=== PATIENT | male | born 1975 | race Caucasian/White ===

== ENCOUNTER 2017-06-28 15:08 | Emergency (ER) | payer SELFPAY ==
[~2017-06-28] VITALS: Ht 182.9 cm; Wt 85.0 kg
[2017-06-28 15:11] VITALS: BP 116/70; PULSE 87; RESP 14; TEMP 98.4; O2SAT 98
--- NOTE | 2017-06-28 16:50 | PD ---
HPI Chief Complaint: Musculoskeletal Complaint Time Seen by Provider: 16:21 Travel History International Travel<30 days: No Contact w/Intl Traveler<30days: No Traveled to known affect area: No History of Present Illness HPI This patient complains of back pain. It's upper left back pain and moving his left shoulder reproduces it. There is been no injury. He has no fever. He has known HIV and does not see any doctor or take any medication for 2 years. He also is an IV drug user. Severity is moderate. No alleviating factors. Pain exacerbating with movement of left shoulder. PFSH Past Medical History Medical other: Yes (HIV +) Pneumonia: Yes Past Surgical History Appendectomy: Yes Other Surgery: Yes (SROTAL MRSA ABCESS) Social History Alcohol Use: Yes (occ) Tobacco Use: No Substance Use: Yes (CRYSTAL METH) Allergies-Medications (Allergen,Severity, Reaction): Coded Allergies: efavirenz (Verified Allergy, Intermediate, RASH, 06/28/17) Review of Systems General / Constitutional: No: Fever Eyes: No: Visual changes HENT: No: Headaches Cardiovascular: No: Chest Pain or Discomfort Respiratory: No: Shortness of Breath Gastrointestinal: No: Abdominal Pain Genitourinary: No: Dysuria Musculoskeletal: Positive: Pain Skin: No Rash Neurologic: No: Weakness Psychiatric: Positive: Substance Abuse, No: Depression Endocrine: No: Polydipsia Hematologic/Lymphatic: No: Easy Bruising Physical Exam Narrative GENERAL: Well-nourished, well-developed patient in no apparent distress. SKIN: Focused skin assessment reveals no rash and nodules. Skin is Warm and dry. HEAD: Atraumatic. Normocephalic. EYES: Pupils equal and round. No scleral icterus. No injection or drainage. ENT: No nasal bleeding or discharge. Mucous membranes pink and moist. NECK: Trachea midline. No JVD. CARDIOVASCULAR: Regular rate and rhythm. No murmur appreciated. RESPIRATORY: No accessory muscle use. Clear to auscultation. Breath sounds equal bilaterally. GASTROINTESTINAL: Abdomen soft, non-tender, nondistended. Hepatic and splenic margins not palpable. MUSCULOSKELETAL: No obvious deformities. No clubbing. No cyanosis. No edema. Has tenderness left rhomboid muscle but no erythema or bruising inflammation. There is no midline tenderness of the spine. NEUROLOGICAL: Awake and alert. No obvious cranial nerve deficits. Motor grossly within normal limits. Normal speech. PSYCHIATRIC: Appropriate mood and affect; insight and judgment normal. Data Data Last Documented VS Vital Signs Date Time Temp Pulse Resp B/P (MAP) Pulse Ox O2 Delivery O2 Flow Rate FiO2 06/28/17 15:11 98.4 87 14 116/70 (85) 98 Orders Orders Chest, Single Ap (06/28/17 ) Iv Access Insert/Monitor (06/28/17 16:44) Complete Blood Count With Diff (06/28/17 16:44) Basic Metabolic Panel (Bmp) (06/28/17 16:44) Westergren Sedimentation Rate (06/28/17 16:44) MDM Medical Decision Making Medical Screen Exam Complete: Yes Emergency Medical Condition: Yes Medical Record Reviewed: Yes Differential Diagnosis Rhomboid muscle strain, pneumonia, arthritis Narrative Course I have reviewed the patient's electronic medical record. I've ordered a workup given his known immunocompromise and IV drug use but my initial suspicion is musculoskeletal pain Mustapha Thomas MD Jun 28, 2017 16:50
--- NOTE | 2017-06-28 17:40 | RADRPT ---
EXAM DATE/TIME: 06/28/2017 17:09 [facility] COMPARISON: No previous studies available for comparison. INDICATIONS : Pain in back and bilateral axillary regions. MEDICAL HISTORY : HIV Pneumonia. SURGICAL HISTORY : None. ENCOUNTER: Initial ACUITY: 1 week PAIN SCORE: 5/10 LOCATION: Back/Axillary region. FINDINGS: A single view of the chest demonstrates the lungs to be symmetrically aerated without evidence of mas s, infiltrate or effusion. The cardiomediastinal contours are unremarkable. Osseous structures are intact. CONCLUSION: No acute disease. Denver Montague MD on June 28, 2017 at 17:38 Board Certified Radiologist. This report was verified electronically.
[2017-06-28 17:43] LABS: AUTOMATED NEUTROPHIL # 1.5 TH/MM3 (1.8-7.7); BASOPHIL % 0.8 % (0.0-2.0); EOSINOPHIL # 0.2 TH/MM3 (0-0.4); EOSINOPHIL % 4.5 % (0.0-4.0); HEMATOCRIT 39.5 % (39.0-51.0); LYMPH % 48.7 % (9.0-44.0); LYMPHOCYTE # 1.9 TH/MM3 (1.0-4.8); MEAN CELL VOLUME 86.8 FL (80.0-100.0); MEAN CORPUSCULAR HEMOGLOBIN 28.9 PG (27.0-34.0); MEAN CORPUSCULAR HGB CONC 33.3 % (32.0-36.0); MONO % 8.5 % (0.0-8.0); NEUT % 37.5 % (16.0-70.0); PLATELET COUNT 219 TH/MM3 (150-450); RED BLOOD COUNT 4.55 MIL/MM3 (4.50-5.90); RED CELL DISTRIBUTION WIDTH 13.1 % (11.6-17.2); WHITE BLOOD COUNT 3.9 TH/MM3 (4.0-11.0)
[2017-06-28 17:45] LABS: HEMO FLAGS AUTO DIFF
[2017-06-28 18:03] LABS: BICARBONATE 28.5 MEQ/L (21.0-32.0); POTASSIUM 4.1 MEQ/L (3.5-5.1)
[2017-06-28 18:10] LABS: PLATELET ESTIMATE SMEAR NORMAL (NORMAL); PLATELET MORPHOLOGY NORMAL (NORMAL); SCAN/DIFF AUTO DIFF CONFIRMED
[2017-06-28] MEDS ORDERED: ULTR50TA5 PO (18:19)
[2017-06-28] MEDS ORDERED: CYCL1TAB29 PO (18:19)
--- NOTE | 2017-06-28 18:20 | PD ---
Physical Exam Date Seen by Provider: Jun 28, 2017 Narrative Care was assumed from Dr. Thomas at 5 PM. This patient presents with pain in his left upper back for a week or 2. Pain is exacerbated by certain movements. Pain has been unrelieved by nonsteroidal anti-inflammatory agents. He has had no associated fevers or chills. He is HIV positive. He is not currently on treatment for HIV. On exam, he has tenderness in the left upper back between the shoulder blade and the spine. Data Data Last Documented VS Vital Signs Date Time Temp Pulse Resp B/P (MAP) Pulse Ox O2 Delivery O2 Flow Rate FiO2 06/28/17 15:11 98.4 87 14 116/70 (85) 98 Orders Orders Chest, Single Ap (06/28/17 ) Iv Access Insert/Monitor (06/28/17 16:44) Complete Blood Count With Diff (06/28/17 16:44) Basic Metabolic Panel (Bmp) (06/28/17 16:44) Westergren Sedimentation Rate (06/28/17 16:44) Labs Laboratory Tests Test 06/28/17 17:10 White Blood Count 3.9 TH/MM3 Red Blood Count 4.55 MIL/MM3 Hemoglobin 13.1 GM/DL Hematocrit 39.5 % Mean Corpuscular Volume 86.8 FL Mean Corpuscular Hemoglobin 28.9 PG Mean Corpuscular Hemoglobin Concent 33.3 % Red Cell Distribution Width 13.1 % Platelet Count 219 TH/MM3 Mean Platelet Volume 7.9 FL Neutrophils (%) (Auto) 37.5 % Lymphocytes (%) (Auto) 48.7 % Monocytes (%) (Auto) 8.5 % Eosinophils (%) (Auto) 4.5 % Basophils (%) (Auto) 0.8 % Neutrophils # (Auto) 1.5 TH/MM3 Lymphocytes # (Auto) 1.9 TH/MM3 Monocytes # (Auto) 0.3 TH/MM3 Eosinophils # (Auto) 0.2 TH/MM3 Basophils # (Auto) 0.0 TH/MM3 CBC Comment AUTO DIFF Differential Comment AUTO DIFF CONFIRMED Platelet Estimate NORMAL Platelet Morphology Comment NORMAL Red Cell Morphology Comment NORMAL Erythrocyte Sedimentation Rate 10 mm/hr Blood Urea Nitrogen 12 MG/DL Creatinine 1.01 MG/DL Random Glucose 73 MG/DL Calcium Level 8.3 MG/DL Sodium Level 139 MEQ/L Potassium Level 4.1 MEQ/L Chloride Level 106 MEQ/L Carbon Dioxide Level 28.5 MEQ/L Anion Gap 5 MEQ/L Estimat Glomerular Filtration Rate 81 ML/MIN MDM Supervised Visit with PROSPER: No Narrative Course CBC & BMP Diagram 06/28/17 17:10 Calcium Level 8.3 L Sedimentation rate is normal at 10. Last Impressions Chest X-Ray 06/28/17 0000 Signed Impressions: Service Date/Time: Wednesday, June 28, 2017 17:09 - CONCLUSION: No acute disease. Denver Montague MD I will discharge the patient with prescriptions for Ultram and Flexeril. Diagnosis Primary Impression: Upper back pain on left side Med/Other Pt SpecificInfo: Prescription(s) given Scripts Cyclobenzaprine (Flexeril) 10 Mg Tab 10 MG PO TID for Muscle Spasm, #30 TAB 0 Refills Prov: Es Cabrera MD 06/28/17 Tramadol (Ultram) 50 Mg Tab 50 MG PO Q4H Y for PAIN, #12 TAB 0 Refills Prov: Es Cabrera MD 06/28/17 Disposition: DISCHARGE HOME Condition: Stable Es Cabrera MD Jun 28, 2017 18:20
== END 2017-06-28 18:42 | disposition home or self-care (01) ==
LOC: NEPD 15:08
DX: M54.9 Dorsalgia, unspecified (principal); F15.90 Other stimulant use, unspecified, uncomplicated; Z21 Asymptomatic human immunodeficiency virus [HIV] infection status
CPT/HCPCS: 71010; 80048; 85025; 85652; 99284

== ENCOUNTER 2018-01-18 18:10 | Emergency (ER) | payer SELFPAY ==
[~2018-01-18] VITALS: Ht 182.9 cm; Wt 79.5 kg
[~2018-01-18 18:10] MED LIST: CYCL10TA PO; TRAM50 PO
[2018-01-18] MEDS ORDERED: IOHEXOL 350 MG/ML 10 ML VIAL (for RAD DIAG) IVCONTRAST ONE (18:11)
[2018-01-18 18:18] VITALS: BP 147/57; PULSE 89; RESP 18; TEMP 97.7; O2SAT 98
--- NOTE | 2018-01-18 18:38 | RADRPT ---
EXAM DATE/TIME: 01/18/2018 18:29 [facility] COMPARISON: No previous studies available for comparison. INDICATIONS : Left lateral rib pain, fell MEDICAL HISTORY : None. HIV Pneumonia. SURGICAL HISTORY : None. ENCOUNTER: Initial ACUITY: 4 - 6 days PAIN SCORE: 6/10 LOCATION: Left chest FINDINGS: PA and lateral views of the chest demonstrate the lungs to be symmetrically aerated without evidence of mass, infiltrate or effusion. The cardiomediastinal contours are unremarkable. Osseous structure s are intact. CONCLUSION: No acute disease. Denver Pino MD on January 18, 2018 at 18:34 Board Certified Radiologist. This report was verified electronically.
[2018-01-18] MEDS ORDERED: DARU1TAB2 PO (19:24)
[2018-01-18] MEDS ORDERED: EMTR1TAB4 PO (19:24)
[2018-01-18] MEDS ORDERED: SODIUM CHLOR 0.9% 1000 ML INJ 1,000 ML IV SCH (19:54)
--- NOTE | 2018-01-18 19:54 | PD ---
HPI Chief Complaint: Musculoskeletal Complaint Time Seen by Provider: 19:35 Travel History International Travel<30 days: No Contact w/Intl Traveler<30days: No Traveled to known affect area: No History of Present Illness HPI 42-year-old male with a history of HIV on antiviral therapy and a chronic illicit drug use or presents emergency department for evaluation of left rib cage and left shoulder pain that started Friday. Patient states that he was inhaling butyl nitrates when he lost consciousness for several seconds and fell landing on his left lower rib cage. Says that he felt a "pop" to his left rib area. Patient does not believe he hit his head but is unsure. Patient says he had a similar episode 1 month ago where he passed out but does not recall injuring himself then. Patient states that he has performing yard work all week and does not believe he has had good fluid intake for proper nutrition resulting in increased muscular pain. Says he has had nausea since Friday as well. Patient says his urine has been dark as a result not drink enough fluid. He denies any dizziness, blurred vision, neck pain, back pain. Patient points to the left upper trapezius and subscapular region where his pain is. Patient says he follows [facility] for his antivirals. Says that he had been off these medications for years and recently started on December 25. [facility] Past Medical History Autoimmune Disease: Yes (HIV) Pneumonia: Yes Past Surgical History Appendectomy: Yes Other Surgery: Yes (SCROTAL MRSA ABCESS) Social History Alcohol Use: Yes (occ) Tobacco Use: No Substance Use: Yes (CRYSTAL METH) Allergies-Medications (Allergen,Severity, Reaction): Coded Allergies: efavirenz (Verified Allergy, Intermediate, RASH, 01/18/18) Reported Meds & Prescriptions Reported Meds & Active Scripts Active Robaxin (Methocarbamol) 500 Mg Tab 500 Mg PO TID 3 Days Reported Descovy (Emtricitabine-Tenofovir Alafenamide) 200-25 mg Tab 1 Tab PO DAILY Prezcobix (Darunavir-Cobicistat) 800-150 Mg Tab 1 Tab PO DAILY Review of Systems Except as stated in HPI: all other systems reviewed are Neg Physical Exam Narrative GENERAL: WD, WN SKIN: Warm and dry. HEAD: Atraumatic. Normocephalic. EYES: Pupils equal and round. No scleral icterus. No injection or drainage. ENT: No nasal bleeding or discharge. Mucous membranes pink and moist. NECK: Trachea midline. No JVD. CARDIOVASCULAR: Regular rate and rhythm. RESPIRATORY: No accessory muscle use. Clear to auscultation. Breath sounds equal bilaterally. GASTROINTESTINAL: Abdomen soft, non-tender, nondistended. Hepatic and splenic margins not palpable. MUSCULOSKELETAL: Extremities without clubbing, cyanosis, or edema. No obvious deformities. NEUROLOGICAL: Awake and alert. No obvious cranial nerve deficits. Motor grossly within normal limits. Five out of 5 muscle strength in the arms and legs. Normal speech. PSYCHIATRIC: Appropriate mood and affect; insight and judgment normal. Data Data Last Documented VS Vital Signs Date Time Temp Pulse Resp B/P (MAP) Pulse Ox O2 Delivery O2 Flow Rate FiO2 01/18/18 22:45 01/18/18 20:38 96 16 96 Room Air 01/18/18 18:18 97.7 Orders Orders Electrocardiogram (01/18/18 ) Chest, Pa & Lat (01/18/18 ) Complete Blood Count With Diff (01/18/18 19:54) Comprehensive Metabolic Panel (01/18/18 19:54) Lipase (01/18/18 19:54) Prothrombin Time / Inr (Pt) (01/18/18 19:54) Act Partial Throm Time (Ptt) (01/18/18 19:54) Urinalysis - C+S If Indicated (01/18/18 19:54) Ct Abd/Pel W Iv Contrast(Rout) (01/18/18 19:54) Iv Access Insert/Monitor (01/18/18 19:54) Ecg Monitoring (01/18/18 19:54) Oximetry (01/18/18 19:54) Sodium Chlor 0.9% 1000 Ml Inj (Ns 1000 M (01/18/18 19:54) Sodium Chloride 0.9% Flush (Ns Flush) (01/18/18 20:00) Ckmb (Isoenzyme) Profile (01/18/18 19:54) CKMB (01/18/18 20:06) CKMB% (01/18/18 20:06) Iohexol 350 Inj (Omnipaque 350 Inj) (01/18/18 18:11) Sodium Chlor 0.9% 1000 Ml Inj (Ns 1000 M (01/18/18 22:00) Ed Discharge Order (01/18/18 22:42) Labs Laboratory Tests Test 01/18/18 20:06 01/18/18 20:19 White Blood Count 5.2 TH/MM3 Red Blood Count 3.82 MIL/MM3 Hemoglobin 11.4 GM/DL Hematocrit 33.3 % Mean Corpuscular Volume 87.1 FL Mean Corpuscular Hemoglobin 29.8 PG Mean Corpuscular Hemoglobin Concent 34.3 % Red Cell Distribution Width 14.8 % Platelet Count 256 TH/MM3 Mean Platelet Volume 7.2 FL Neutrophils (%) (Auto) 57.3 % Lymphocytes (%) (Auto) 31.6 % Monocytes (%) (Auto) 8.4 % Eosinophils (%) (Auto) 2.2 % Basophils (%) (Auto) 0.5 % Neutrophils # (Auto) 3.0 TH/MM3 Lymphocytes # (Auto) 1.6 TH/MM3 Monocytes # (Auto) 0.4 TH/MM3 Eosinophils # (Auto) 0.1 TH/MM3 Basophils # (Auto) 0.0 TH/MM3 CBC Comment DIFF FINAL Differential Comment Prothrombin Time 10.0 SEC Prothromb Time International Ratio 1.0 RATIO Activated Partial Thromboplast Time 26.8 SEC Blood Urea Nitrogen 12 MG/DL Creatinine 1.09 MG/DL Random Glucose 105 MG/DL Total Protein 6.6 GM/DL Albumin 3.2 GM/DL Calcium Level 8.1 MG/DL Alkaline Phosphatase 90 U/L Aspartate Amino Transf (AST/SGOT) 38 U/L Alanine Aminotransferase (ALT/SGPT) 34 U/L Total Bilirubin 0.2 MG/DL Sodium Level 137 MEQ/L Potassium Level 4.2 MEQ/L Chloride Level 107 MEQ/L Carbon Dioxide Level 22.9 MEQ/L Anion Gap 7 MEQ/L Estimat Glomerular Filtration Rate 74 ML/MIN Total Creatine Kinase 383 U/L Creatine Kinase MB 5.7 NG/ML Creatine Kinase MB % 1.5 % Lipase 127 U/L Urine Color LIGHT-YELLOW Urine Turbidity CLEAR Urine pH 7.0 Urine Specific [place] 1.010 Urine Protein NEG mg/dL Urine Glucose (UA) NEG mg/dL Urine Ketones NEG mg/dL Urine Occult Blood NEG Urine Nitrite NEG Urine Bilirubin NEG Urine Urobilinogen LESS THAN 2.0 MG/DL Urine Leukocyte Esterase NEG Urine RBC LESS THAN 1 /hpf Urine WBC 1 /hpf Microscopic Urinalysis Comment CULT NOT INDICATED MDM Medical Decision Making Medical Screen Exam Complete: Yes Emergency Medical Condition: Yes Differential Diagnosis Costochondritis, splenic rupture, chest wall contusion Narrative Course 42-year-old male presents emergency room for evaluation of left lower rib cage, axillary pain that started after a fall that occurred on Friday. Labs and imaging studies ordered. EKG shows sinus rhythm at a rate of 81. No STEMI changes. CBC & BMP Diagram 01/18/18 20:06 Total Protein 6.6, Albumin 3.2 L, Calcium Level 8.1 L, Alkaline Phosphatase 90, Aspartate Amino Transf (AST/SGOT) 38 H, Alanine Aminotransferase (ALT/SGPT) 34, Total Bilirubin 0.2 Total CK elevated at 383. Last Impressions Abdomen/Pelvis CT 01/18/181953 Signed Impressions: Service Date/Time: Thursday, January 18, 2018 21:39 - CONCLUSION: 1. No acute CT findings in the abdomen or pelvis. 2. Simple fluid density cystic lesion measuring 3.3 x 1.7 cm adjacent the right anterior pericardium consistent with pericardial cyst. 3. Subcentimeter hypodense cystic lesion in segment 2 of the liver which is too small to fully characterize. Statistically, this reflects a hemangioma or cyst. 4. Status post appendectomy. Pollo Sheikh MD Chest X-Ray 01/18/18 0000 Signed Impressions: Service Date/Time: Thursday, January 18, 2018 18:29 - CONCLUSION: No acute disease. Denver Pino MD 2 L normal saline IV fluid administered. Patient be discharged advised to use Tylenol or Motrin per package instructions for his pain. Robaxin for muscle spasms. Advised to continue deep breaths to avoid palpitations as a result of the rib pain. Patient should follow-up with his primary care physician. Diagnosis Primary Impression: Muscle spasm Additional Impression: Costochondritis Referrals: Primary Care Physician Additional Instructions: Continue to take deep breaths to avoid complications as a result of the rib pain. May use Tylenol or Motrin per package instructions for your pain. Use muscle relaxer sparingly as a may make you feel drowsy. Scripts Methocarbamol (Robaxin) 500 Mg Tab 500 MG PO TID for Muscle Spasm for 3 Days, TAB 0 Refills Prov: Alejandra Rodríguez MD 01/18/18 Disposition: 01 DISCHARGE HOME Condition: Stable Amada Naranjo Jan 18, 2018 19:54
--- NOTE | 2018-01-18 19:55 | PD ---
Data Data Last Documented VS Vital Signs Date Time Temp Pulse Resp B/P (MAP) Pulse Ox O2 Delivery O2 Flow Rate FiO2 01/18/18 22:45 01/18/18 20:38 96 16 96 Room Air 01/18/18 18:18 97.7 Orders Orders Electrocardiogram (01/18/18 ) Chest, Pa & Lat (01/18/18 ) Complete Blood Count With Diff (01/18/18 19:54) Comprehensive Metabolic Panel (01/18/18 19:54) Lipase (01/18/18 19:54) Prothrombin Time / Inr (Pt) (01/18/18 19:54) Act Partial Throm Time (Ptt) (01/18/18 19:54) Urinalysis - C+S If Indicated (01/18/18 19:54) Ct Abd/Pel W Iv Contrast(Rout) (01/18/18 19:54) Iv Access Insert/Monitor (01/18/18 19:54) Ecg Monitoring (01/18/18 19:54) Oximetry (01/18/18 19:54) Sodium Chlor 0.9% 1000 Ml Inj (Ns 1000 M (01/18/18 19:54) Sodium Chloride 0.9% Flush (Ns Flush) (01/18/18 20:00) Ckmb (Isoenzyme) Profile (01/18/18 19:54) CKMB (01/18/18 20:06) CKMB% (01/18/18 20:06) Iohexol 350 Inj (Omnipaque 350 Inj) (01/18/18 18:11) Sodium Chlor 0.9% 1000 Ml Inj (Ns 1000 M (01/18/18 22:00) Ed Discharge Order (01/18/18 22:42) Labs Laboratory Tests Test 01/18/18 20:06 01/18/18 20:19 White Blood Count 5.2 TH/MM3 Red Blood Count 3.82 MIL/MM3 Hemoglobin 11.4 GM/DL Hematocrit 33.3 % Mean Corpuscular Volume 87.1 FL Mean Corpuscular Hemoglobin 29.8 PG Mean Corpuscular Hemoglobin Concent 34.3 % Red Cell Distribution Width 14.8 % Platelet Count 256 TH/MM3 Mean Platelet Volume 7.2 FL Neutrophils (%) (Auto) 57.3 % Lymphocytes (%) (Auto) 31.6 % Monocytes (%) (Auto) 8.4 % Eosinophils (%) (Auto) 2.2 % Basophils (%) (Auto) 0.5 % Neutrophils # (Auto) 3.0 TH/MM3 Lymphocytes # (Auto) 1.6 TH/MM3 Monocytes # (Auto) 0.4 TH/MM3 Eosinophils # (Auto) 0.1 TH/MM3 Basophils # (Auto) 0.0 TH/MM3 CBC Comment DIFF FINAL Differential Comment Prothrombin Time 10.0 SEC Prothromb Time International Ratio 1.0 RATIO Activated Partial Thromboplast Time 26.8 SEC Blood Urea Nitrogen 12 MG/DL Creatinine 1.09 MG/DL Random Glucose 105 MG/DL Total Protein 6.6 GM/DL Albumin 3.2 GM/DL Calcium Level 8.1 MG/DL Alkaline Phosphatase 90 U/L Aspartate Amino Transf (AST/SGOT) 38 U/L Alanine Aminotransferase (ALT/SGPT) 34 U/L Total Bilirubin 0.2 MG/DL Sodium Level 137 MEQ/L Potassium Level 4.2 MEQ/L Chloride Level 107 MEQ/L Carbon Dioxide Level 22.9 MEQ/L Anion Gap 7 MEQ/L Estimat Glomerular Filtration Rate 74 ML/MIN Total Creatine Kinase 383 U/L Creatine Kinase MB 5.7 NG/ML Creatine Kinase MB % 1.5 % Lipase 127 U/L Urine Color LIGHT-YELLOW Urine Turbidity CLEAR Urine pH 7.0 Urine Specific [place] 1.010 Urine Protein NEG mg/dL Urine Glucose (UA) NEG mg/dL Urine Ketones NEG mg/dL Urine Occult Blood NEG Urine Nitrite NEG Urine Bilirubin NEG Urine Urobilinogen LESS THAN 2.0 MG/DL Urine Leukocyte Esterase NEG Urine RBC LESS THAN 1 /hpf Urine WBC 1 /hpf Microscopic Urinalysis Comment CULT NOT INDICATED MDM Medical Record Reviewed: Yes Supervised Visit with PROSPER: Yes Interpretation(s) Last Impressions Abdomen/Pelvis CT 01/18/181953 Signed Impressions: Service Date/Time: Thursday, January 18, 2018 21:39 - CONCLUSION: 1. No acute CT findings in the abdomen or pelvis. 2. Simple fluid density cystic lesion measuring 3.3 x 1.7 cm adjacent the right anterior pericardium consistent with pericardial cyst. 3. Subcentimeter hypodense cystic lesion in segment 2 of the liver which is too small to fully characterize. Statistically, this reflects a hemangioma or cyst. 4. Status post appendectomy. Pollo Sheikh MD Chest X-Ray 01/18/18 0000 Signed Impressions: Service Date/Time: Thursday, January 18, 2018 18:29 - CONCLUSION: No acute disease. Denver Pino MD Narrative Course I, Dr. Rodríguez, have reviewed the advance practice practitioner's documentation and am in agreement, met with the patient face to face, made the diagnosis, and the medical decision making was done by me. The patient was initially evaluated by Amada, the physician obstetric assistant. Please see their complete history and physical. *My assessment and Findings: The patient presents with a history of left rib cage pain, left shoulder pain that began after passing out while using drugs. The patient's past medical history is significant for polysubstance abuse, HIV currently on retroviral medications, prior history of pneumonia, history of MRSA skin infections. During the course of the patient's emergency department visit, the patient's history, examination, and differential diagnosis were reviewed with the patient. The patient was placed on a fashion journalist with oximetry and frequent blood pressure monitoring. The patient had IV access obtained and blood work sent for analysis. The patient was initially provided normal saline 1 L IV fluid bolus which was repeated 1. The patient's laboratory studies were reviewed and remarkable for CBC & BMP Diagram 01/18/18 20:06 Total Protein 6.6, Albumin 3.2 L, Calcium Level 8.1 L, Alkaline Phosphatase 90, Aspartate Amino Transf (AST/SGOT) 38 H, Alanine Aminotransferase (ALT/SGPT) 34, Total Bilirubin 0.2 Radiology studies were reviewed and remarkable for: Last Impressions Abdomen/Pelvis CT 01/18/18 195 Signed Impressions: Service Date/Time: Thursday, January 18, 2018 21:39 - CONCLUSION: 1. No acute CT findings in the abdomen or pelvis. 2. Simple fluid density cystic lesion measuring 3.3 x 1.7 cm adjacent the right anterior pericardium consistent with pericardial cyst. 3. Subcentimeter hypodense cystic lesion in segment 2 of the liver which is too small to fully characterize. Statistically, this reflects a hemangioma or cyst. 4. Status post appendectomy. Pollo Sheikh MD Chest X-Ray 01/18/18 0000 Signed Impressions: Service Date/Time: Thursday, January 18, 2018 18:29 - CONCLUSION: No acute disease. Denver Pino MD The patient is resting comfortably and feels better, is alert and in no distress. The patient's results and examination findings were discussed with the patient. The repeat examination is unremarkable and benign. The history, exam, diagnostic testing, and current condition do not suggest any significant pathology to warrant further testing, continued ED treatment, admission, or surgical evaluation at this point. The vital signs have been stable. The patient does not have uncontrollable pain, intractable vomiting, or other significant symptoms. The patient's condition is stable and appropriate for discharge. The patient will pursue further outpatient evaluation with a primary care physician or other designated or consulting physician as indicated in the discharge instructions. The patient expressed understanding and was agreeable with this plan. Scripts Methocarbamol (Robaxin) 500 Mg Tab 500 MG PO TID for Muscle Spasm for 3 Days, TAB 0 Refills Prov: Alejandra Rodríguez MD 01/18/18 Condition: Stable Alejandra Rodríguez MD Jan 18, 2018 19:55
[2018-01-18] MEDS ORDERED: SODIUM CHLORIDE 0.9% FLUSH 10 ML FLUSH IV FLUSH PRN (20:00)
[2018-01-18 20:38] VITALS: BP 116/75; PULSE 96; RESP 16; O2SAT 96
[2018-01-18 20:49] LABS: BASOPHIL % 0.5 % (0.0-2.0); EOSINOPHIL # 0.1 TH/MM3 (0-0.4); EOSINOPHIL % 2.2 % (0.0-4.0); HEMATOCRIT 33.3 % (39.0-51.0); HEMOGLOBIN 11.4 GM/DL (13.0-17.0); LYMPH % 31.6 % (9.0-44.0); LYMPHOCYTE # 1.6 TH/MM3 (1.0-4.8); MEAN CELL VOLUME 87.1 FL (80.0-100.0); MEAN CORPUSCULAR HEMOGLOBIN 29.8 PG (27.0-34.0); MEAN CORPUSCULAR HGB CONC 34.3 % (32.0-36.0); MEAN PLATELET VOLUME 7.2 FL (7.0-11.0); MONO % 8.4 % (0.0-8.0); MONOCYTE # 0.4 TH/MM3 (0-0.9); NEUT % 57.3 % (16.0-70.0); PLATELET COUNT 256 TH/MM3 (150-450); RED BLOOD COUNT 3.82 MIL/MM3 (4.50-5.90); RED CELL DISTRIBUTION WIDTH 14.8 % (11.6-17.2); WHITE BLOOD COUNT 5.2 TH/MM3 (4.0-11.0)
[2018-01-18 20:53] LABS: BILIRUBIN, URINE NEG (NEG); BLOOD, URINE NEG (NEG); GLUCOSE,URINE NEG (NEG); KETONE, URINE NEG (NEG); NITRITE,URINE NEG (NEG); URINE COLOR LIGHT-YELLOW (YELLW/STRAW); URINE LEUKOCYTE ESTERASE NEG (NEG)
[2018-01-18 21:09] LABS: ALBUMIN 3.2 GM/DL (3.4-5.0); AST (GOT) 38 U/L (15-37); BICARBONATE 22.9 MEQ/L (21.0-32.0); BLOOD UREA NITROGEN 12 MG/DL (7-18); CALCIUM 8.1 MG/DL (8.5-10.1); CHLORIDE 107 MEQ/L (98-107); CREATININE 1.09 MG/DL (0.60-1.30); GLOMERULAR FILTRATION RATE 74 ML/MIN (>89); GLUCOSE,RANDOM 105 MG/DL (74-106); SODIUM (NA) 137 MEQ/L (136-145)
[2018-01-18 21:10] LABS: ALT (GPT) 34 U/L (12-78)
[2018-01-18 21:13] LABS: ALKALINE PHOSPHATASE 90 U/L (45-117); TOTAL BILIRUBIN ADULT 0.2 MG/DL (0.2-1.0); TOTAL PROTEIN 6.6 GM/DL (6.4-8.2)
[2018-01-18] MEDS ORDERED: SODIUM CHLOR 0.9% 1000 ML INJ 1,000 ML IV ONE (22:00)
--- NOTE | 2018-01-18 22:02 | RADRPT ---
EXAM DATE/TIME: 01/18/2018 21:39 [place] COMPARISON: No previous studies available for comparison. INDICATIONS : Abdominal pain. IV CONTRAST: 94 cc Omnipaque 350 (iohexol) IV ORAL CONTRAST: No oral contrast ingested. RADIATION DOSE: 6.57 CTDIvol (mGy) MEDICAL HISTORY : HIV SURGICAL HISTORY : Appendectomy. ENCOUNTER: Initial ACUITY: 4 - 6 days PAIN SCALE: 6/10 LOCATION: Left upper quadrant TECHNIQUE: Volumetric scanning of the abdomen and pelvis was performed. Using automated exposure control and ad justment of the mA and/or kV according to patient size, radiation dose was kept as low as reasonably achievable to obtain optimal diagnostic quality images. DICOM format image data is available electro nically for review and comparison. FINDINGS: LOWER LUNGS: The visualized lower lungs are clear. Small 3.3 x 1.7 cm fluid density cystic lesion adjacent the rig ht anterior pericardium. This measures simple fluid in density. LIVER: Subcapsular subcentimeter hypodense cystic lesion in segment 2 of the liver which is too small to ful ly characterize. Gallbladder is contracted. SPLEEN: Normal size without lesion. PANCREAS: Within normal limits. KIDNEYS: Normal in size and shape. There is no mass, stone or hydronephrosis. ADRENAL GLANDS: Within normal limits. VASCULAR: There is no aortic aneurysm. BOWEL/MESENTERY: The stomach, small bowel, and colon demonstrate no acute abnormality. Appendix is surgically absent. There is no free intraperitoneal air or fluid. ABDOMINAL WALL: Within normal limits. RETROPERITONEUM: There is no lymphadenopathy. BLADDER: No wall thickening or mass. REPRODUCTIVE: Within normal limits. INGUINAL: There is no lymphadenopathy or hernia. MUSCULOSKELETAL: Within normal limits for patient age. CONCLUSION: 1. No acute CT findings in the abdomen or pelvis. 2. Simple fluid density cystic lesion measuring 3.3 x 1.7 cm adjacent the right anterior pericardium consistent with pericardial cyst. 3. Subcentimeter hypodense cystic lesion in segment 2 of the liver which is too small to fully charac terize. Statistically, this reflects a hemangioma or cyst. 4. Status post appendectomy. Pollo Sheikh MD on January 18, 2018 at 21:55 Board Certified Radiologist. This report was verified electronically.
[2018-01-18] MEDS ORDERED: ROBA500T PO (22:41)
--- NOTE | 2018-01-19 21:13 | EKG ---
Date Performed: 01/18/2018 Time Performed: 18:24:18 PTAGE: 42 years EKG: Sinus rhythm NORMAL ECG NO PREVIOUS TRACING DOCTOR: Bonifacio Worrell Interpretating Date/Time 01/19/2018 21:12:28
== END 2018-01-18 22:57 | disposition home or self-care (01) ==
LOC: NEPC 18:10
DX: M62.838 Other muscle spasm (principal); M94.0 Chondrocostal junction syndrome [Tietze]; F19.10 Other psychoactive substance abuse, uncomplicated; R55 Syncope and collapse; M25.512 Pain in left shoulder; R07.81 Pleurodynia; W19.XXXA Unspecified fall, initial encounter; B20 Human immunodeficiency virus [HIV] disease; F15.10 Other stimulant abuse, uncomplicated
CPT/HCPCS: 71046; 74177; 80053; 81001; 82550; 82552; 83690; 85025; 85610; 85730; 93005; 96360; 96361; 99285; J7030; Q9967